=== PATIENT | male | born 1965 | race Caucasian/White ===

== ENCOUNTER 2021-06-22 08:01 | Observation (INO) | payer OTHER ==
[~2021-06-22] VITALS: Ht 182.9 cm; Wt 108.2 kg
[~2021-06-22 08:01] MED LIST: CLON1 PO; DIVA500EC PO
[2021-06-22] MEDS ORDERED: DONEPEZIL HCL10 MG PO (08:45)
[2021-06-22] MEDS ORDERED: EUTHYROX50 MCG PO (08:46)
[2021-06-22] MEDS ORDERED: METPHE20 PO (08:46)
[2021-06-22] MEDS ORDERED: SERT100 PO (08:46)
[2021-06-22] MEDS ORDERED: DIVA500ER PO (08:46)
[2021-06-22] MEDS ORDERED: MEMA10 PO (08:50)
[2021-06-22 09:41] LABS: BASOPHILS ABSOLUTE AUTO 0.04 K/mm3 (0.00-0.23); BASOPHILS PERCENT AUTO 1 % (0-2); EOSINOPHILS ABSOLUTE AUTO 0.06 K/mm3 (0.00-0.68); EOSINOPHILS PERCENT AUTO 1 % (0-6); Hematocrit 44.6 % (37.0-53.0); Hemoglobin 15.1 g/dL (13.5-17.5); IMMATURE GRAN ABSOLUTE AUTO 0.03 K/mm3 (0.00-0.10); IMMATURE GRAN PERCENT AUTO 1 % (0-1); LYMPHOCYTES ABSOLUTE AUTO 1.38 K/mm3 (0.84-5.20); LYMPHOCYTES PERCENT AUTO 22 % (21-46); MONOCYTES ABSOLUTE AUTO 0.49 K/mm3 (0.16-1.47); MONOCYTES PERCENT AUTO 8 % (4-13); Mean Corpuscular HGB 30.4 pg (26.0-34.0); Mean Corpuscular HGB Conc 33.9 g/dL (31.5-36.5); Mean Corpuscular Volume 90 fL (80-100); Mean Platelet Volume 9.5 fL (9.1-12.4); NEUTROPHILS ABSOLUTE AUTO 4.41 K/mm3 (1.96-9.15); NEUTROPHILS PERCENT AUTO 69 % (41-73); Platelet Count 280 K/mm3 (150-400); RDW Coefficient Variation 12.7 % (11.7-14.2); RDW Standard Deviation 41.7 fL (35.1-46.3); Red Blood Cell Count 4.97 M/mm3 (4.30-5.90); White Blood Cell Count 6.41 K/mm3 (4.00-11.30)
[2021-06-22 10:03] LABS: Alanine Aminotransfer (ALT/SGP 41 U/L (12-78); Albumin, Blood 3.7 g/dL (3.4-5.0); Alk Phos 112 U/L (50-136); Anion Gap 5 mmol/L (6-16); Aspartate Aminotrans (AST/SGOT 23 U/L (12-37); Bilirubin, Total 0.2 mg/dL (0.1-1.0); Blood Urea Nitrogen 18 mg/dL (8-24); Bun/Creatinine Ratio 23.4 (12.0-20.0); CO2, Blood 28 mmol/L (21-32); Calcium, Blood 8.8 mg/dL (8.5-10.1); Chloride, Blood 105 mmol/L (98-108); Creatinine, Blood 0.77 mg/dL (0.60-1.20); Globulin, Blood 3.7 g/dL (2.2-4.0); Glomerular Filtration Rate >60 (60-); Glucose, Blood 113 mg/dL (70-99); Potassium, Blood 4.2 mmol/L (3.5-5.5); Sodium, Blood 138 mmol/L (136-145); Total Protein, Blood 7.4 g/dL (6.4-8.2)
[2021-06-22 10:12] LABS: Influenza A, PCR NEGATIVE (NEGATIVE); Influenza B, PCR NEGATIVE (NEGATIVE); Resp Syncytial Virus, PCR NEGATIVE (NEGATIVE); SARS-Cov-2 (COVID-19) PCR, MMC NEGATIVE (NEGATIVE)
[2021-06-22] MEDS ORDERED: CLON2 PO (13:01)
[2021-06-22 14:18] LABS: Source, Urine Clean Catch
[2021-06-22 14:28] LABS: Appearance, Urine Clear (Clear); Bilirubin, Urine Neg (Neg); Blood, Urine Neg (Neg); Color, Urine Yellow (P-Yellow); Glucose Qualitative, Urine Neg (Neg); Ketones, Urine Neg (Neg); Leukocyte Esterase, Urine Neg (Neg); Nitrite, Urine Neg (Neg); Protein, Urine Neg (Neg); Urobilinogen, Urine NORM (Normal)
--- NOTE | 2021-06-22 16:30 | NUR ---
PT PLEASANT A/O X3, STATES PT IS ONLY 1-2 AT CHEST & MORE OF A PRESSURE THAN PAIN. STATES THAT IT COMES AND GOES. STATES VERY LIGHT AT THIS TIME. NPO AT MIDNITE FOR STRESS TEST TOMORROW. STUDENT NURSE = STRONG. DENIES DIZZINESS, WEAKNESS, VISION CHANGES. AMBULATES SELF TO BATHROOM. H/R REG, NO MURMUR NOTED. TELE STATES NSR 70'S. LUNGS CLEAR, RESP EASY UNLABORED. ON R/A. BT X4 LAST BM TODAY. VOIDS INDEPENDANTLY TO BATHROOM. BED IN LOW POSITION, CA LL LITE IN REACH, CALLS APPROP, AT BEDSIDE.
[2021-06-22 16:31] LABS: Adenovirus F 40/41 Not Detected (NOT DETECT); Astrovirus Not Detected (NOT DETECT); Campylobacter Sp Not Detected (NOT DETECT); Cryptosporidium Not Detected (NOT DETECT); Cyclospora Cayetanensis Not Detected (NOT DETECT); E. Coli O157 Not Detected (NOT DETECT); Entamoeba Histolytica Not Detected (NOT DETECT); Enteroaggregative E. coli-EAEC Not Detected (NOT DETECT); Enteropathogenic E. coli-EPEC Not Detected (NOT DETECT); Enterotoxigenic E. coli-ETEC Not Detected (NOT DETECT); Giardia Lamblia Not Detected (NOT DETECT); Norovirus GI/GII Not Detected (NOT DETECT); Plesiomonas Shigelloides Not Detected (NOT DETECT); Rotavirus A Not Detected (NOT DETECT); Salmonella Sp Not Detected (NOT DETECT); Sapovirus Not Detected (NOT DETECT); Shiga Toxin-prod E. coli-STEC Not Detected (NOT DETECT); Shigella/Enteroin E. coli-EIEC Not Detected (NOT DETECT); Vibrio Cholerae Not Detected (NOT DETECT); Vibrio Sp Not Detected (NOT DETECT); Yersinia Enterocolitica Not Detected (NOT DETECT)
--- NOTE | 2021-06-23 05:20 | NUR ---
SHIFT SUMMARY: PT IS A/O X4. INDEPENDENT IN ROOM. TELE: SR/67. HAS BEEN NPO SINCE MIDNIGHT AND WILL BE GOING IN FOR A STRESS TEST TODAY. PT HAS BEEN PLEASANT AND COOPERATIVE WITH ALL CARE. CALL LIGHT IS WITHIN REACH.
--- NOTE | 2021-06-23 13:10 | NUR ---
PT REPORTS HEADACHE HAS RETURNED, RECENTLY MEDICATED WITH TYLENOL WHICH WAS EFFECTIVE BUT ONLY FOR A SHORT DURATION PER PATIENT REPORT. PT ALSO REPORTS FEELING NAUSEATED AGAIN, RECENTLY GIVEN ZOFRAN WHICH WAS ALSO ONLY AFFECTIVE FOR A SHORT DURATION (SEE EMAR, BOTH TYLENOL AND ZOFRAN GIVEN AT SAME TIME). PT REPORTS NOT WANTING ANY MORE "PRESCRIPTION MEDICATIONS AT THIS TIME". WILL CTM.
--- NOTE | 2021-06-23 18:22 | NUR ---
SHIFT SUMMARY A/O X4, VSS, TOLERATING PO, INDEPENDENT IN HIS ROOM, ABLE TO MAKE NEEDS KNOWN. LEXISCAN DONE TODAY, CARDIOLOGY CONSULT IN PLACE FOR TOMORROW c ADD ON ANGIOGRAM. TO BE NPO AT MIDNIGHT TONIGHT. NO ACUTE EVENTS THIS SHIFT. CALL LIGHT IN REACH, WILL CTM AND REPORT TO ONCOMING NOC RN.
--- NOTE | 2021-06-24 04:27 | NUR ---
SHIFT SUMMARY: PT IS A/OX4. HE HAS BEEN NPO SINCE MIDNIGHT. TELE: SR/63. INDEPENDENT IN ROOM/HALLWAY WALKS. NO C/O CX PAIN OR DISCOMFORT THIS SHIFT. PT IS VERY PLEASANT AND COOPERATIVE WITH ALL CARE. CALL LIGHT IS WITHIN REACH AND WE;LL CONTINUE TO MONITOR.
--- NOTE | 2021-06-24 12:51 | NUR ---
TRANSFER SUMMARY PT WAS NPO ALL A.M., ZOFRAN GIVEN 1X FOR NAUSEA, AMB INDEPENDENTLY TO BRP, VOIDING WELL. PT CURRENTLY IN ANGIOGRAM WITH DR MARCELO. REPORT PROVIDED TO LAUREEN AMOS. HAS PT'S PERSONAL POSSESSIONS, AND INFORMED OF ROOM PCU1 ASSIGNMENT.
[2021-06-24] MEDS ORDERED: FAMO20 PO (14:55)
[2021-06-24] MEDS ORDERED: Amlodipine Bes2.5 MG PO (14:55)
--- NOTE | 2021-06-24 16:06 | NUR ---
PT POST ANGIO RIGHT RADIAL SITE, NO INTERVENTION VESSELS ARE CLEAR PER REPORT. PT DENIES ANY CHEST PAIN, VITALS HAS BEEN STABLE. DR CADENA SAW PT BEFORE PT WAS DISCHARGED. RIGHT RADIAL SITE WITH TR BAND FULL RECOVERED NO HEMATOMA OR BLEEDING NOTED, ARM BOARD SPLINT IN PLACE, PT EDUCATED ABOUT RIGHT RADIAL SITE CARE, HAND OUT INFO SENT HOME WITH THE PT, DISCLOSED ALL DISCHARGE INSTRUCTION AND NEW MEDICATION WITH THE PT. AT THE BEDSIDE SINCE AFTER THE PROCEDURE. TO TAKE PT HOME. PT AMBULATORY FOR TRANSPORT. NO OTHER ISSUES REPORTED. ALL BELONGINGS SENT WITH THE PT.
== END 2021-06-24 16:08 | disposition home or self-care (01) ==
LOC: ER 08:01 → MEDS 08:02 → PCU 06-24 12:17
PROVIDERS: Emergency Medicine; ADMIT Internal Medicine
DX: I20.0 Unstable angina (principal); R19.7 Diarrhea, unspecified; R11.0 Nausea; F03.90 Unspecified dementia, unspecified severity, without behavioral disturbance, psychotic disturbance, mood disturbance, and anxiety; G25.3 Myoclonus; F32.A Depression, unspecified; E03.9 Hypothyroidism, unspecified; G40.909 Epilepsy, unspecified, not intractable, without status epilepticus; R41.89 Other symptoms and signs involving cognitive functions and awareness; R73.9 Hyperglycemia, unspecified; Z85.828 Personal history of other malignant neoplasm of skin; Z20.822 Contact with and (suspected) exposure to COVID-19
CPT/HCPCS: 0241U; 36415; 71045; 76937; 78452; 80053; 81003; 83880; 84484; 85025; 87507; 93005; 93010; 93017; 93454; 99152; 99285-25; A9270; A9500; C1769; C1887; C1894; J1644; J1650; J2250; J2405; J2785; J3010; J7030; J7040; Q9967

== ENCOUNTER 2022-03-17 06:03 | Day surgery (SDC) | payer OTHER ==
[~2022-03-17] VITALS: Ht 185.4 cm; Wt 114.3 kg
[~2022-03-17 06:03] MED LIST changes: +Amlodipine Bes2.5 MG PO; +CLON2 PO; +DIVA500ER PO; +DONEPEZIL HCL10 MG PO; +EUTHYROX50 MCG PO; +FAMO20 PO; +MEMA10 PO; +METPHE20 PO; +SERT100 PO
== END 2022-03-17 08:15 | disposition home or self-care (01) ==
LOC: ORSCSDS 06:03
PROVIDERS: Student in an Organized Health Care Education/Training Program
PROC: 08RJ3JZ Replacement of Right Lens with Synthetic Substitute, Percutaneous Approach (ICD-10-PCS; principal; 2022-03-17 07:30)
DX: H25.11 Age-related nuclear cataract, right eye (principal); E03.9 Hypothyroidism, unspecified; E66.9 Obesity, unspecified; Z68.33 Body mass index [BMI] 33.0-33.9, adult; K21.9 Gastro-esophageal reflux disease without esophagitis; Z79.899 Other long term (current) drug therapy
CPT/HCPCS: A9270; J2001; J2250; J3010; J7040; V2632

== ENCOUNTER 2022-03-31 08:36 | Day surgery (SDC) | payer OTHER ==
[~2022-03-31] VITALS: Ht 182.9 cm; Wt 113.2 kg
--- NOTE | 2022-03-31 09:04 | NUR ---
03/31/22 0904 Nuvia Zafar TETRACAINE TO LEFT EYE AT 0900 PLEDGET TO LEFT EYE @ 0901 BY [facility].[email or web address]
== END 2022-03-31 10:43 | disposition home or self-care (01) ==
LOC: ORSCSDS 08:36
PROVIDERS: Student in an Organized Health Care Education/Training Program
PROC: 08DK3ZZ Extraction of Left Lens, Percutaneous Approach (ICD-10-PCS; principal; 2022-03-31 10:00)
DX: H25.12 Age-related nuclear cataract, left eye (principal); Z96.1 Presence of intraocular lens; K21.9 Gastro-esophageal reflux disease without esophagitis; F41.9 Anxiety disorder, unspecified; Z79.899 Other long term (current) drug therapy
CPT/HCPCS: J2001; J2250; J3010; J7040; V2632